=== PATIENT | female | born 1995 | race Caucasian/White ===

== ENCOUNTER 2018-04-24 12:10 | Emergency (ER) | payer OTHER ==
[2018-04-24 12:33] VITALS: TEMP 98; BMI 20.5
[2018-04-24] MEDS ORDERED: SODIUM CHLORIDE 1,000 ML IV STA (13:10)
--- NOTE | 2018-04-24 13:10 | PDOC ---
History of Present Illness - General Chief Complaint: Alcohol intoxication Stated Complaint: EVALUATION Time Seen by Provider: 04/24/18 12:30 History Source: Patient Exam Limitations: No Limitations - History of Present Illness Initial Comments: 04/24/18 15:54 22F with pmh of deprression, anxiety and etoh abuse presents to the ED BIBEM after acute alcohol intoxication overnight, having drank 2 pints of vodka. Patient's uncle was talking to her on the phone and could tell she wasn't alright so called ems to pick her up at her hotel. Patient's last drink was at 2am. She usually drinks alone, makes her anxiety feels better. Patient states that she took a cab from her home in [place] yesterday to [facility] rehab but felt unsafe with the patient population there. Past History - Past Medical History Allergies/Adverse Reactions: Allergies Allergy/AdvReac Type Severity Reaction Status Date / Time No Known Allergies Allergy Verified 04/24/18 12:30 Home Medications: Ambulatory Orders NK [No Known Home Medication] 04/24/18 COPD: No DVT: No - Immunization History Immunization Up to Date: Yes - Suicide/Smoking/Psychosocial Hx Smoking History: Never smoked Hx Alcohol Use: Yes (DAILY) Substance Use Type: Alcohol Review of Systems - Review of Systems Able to Perform ROS?: Yes Is the patient limited Egyptian proficient: No Constitutional: No: Symptoms Reported HEENTM: No: Symptoms Reported Respiratory: No: Symptoms reported Cardiac (ROS): No: Symptoms Reported ABD/GI: No: Symptoms Reported : No: Symptoms Reported Musculoskeletal: No: Symptoms Reported Integumentary: No: Symptoms Reported Neurological: Yes: Headache. No: Tremors Psychiatric: No: Anxiety Endocrine: No: Symptoms Reported All Other Systems: Reviewed and Negative *Physical Exam - Vital Signs Last Vital Signs Temp Pulse Resp BP Pulse Ox 98.0 F 71 16 120/73 99 04/24/18 12:30 04/24/18 12:30 04/24/18 12:30 04/24/18 12:30 04/24/18 12:30 - Physical Exam General Appearance: Yes: Nourished, Appropriately Dressed. No: Apparent Distress HEENT: positive: EOMI, EMERSON, Normal ENT Inspection, Other (mild tongue fasciculations) Respiratory/Chest: positive: Lungs Clear, Normal Breath Sounds. negative: Chest Tender, Respiratory Distress Cardiovascular: positive: Regular Rhythm, Regular Rate, S1, S2 Gastrointestinal/Abdominal: positive: Normal Bowel Sounds, Flat, Soft. negative : Tender Musculoskeletal: positive: Normal Inspection. negative: CVA Tenderness Extremity: positive: Normal Capillary Refill, Normal Inspection, Normal Range of Motion Integumentary: positive: Normal Color, Dry, Warm Neurologic: positive: Fully Oriented, Alert, Normal Mood/Affect ED Treatment Course - LABORATORY CBC & Chemistry Diagram: 04/24/18 13:30 04/24/18 13:30 Medical Decision Making - Medical Decision Making 04/24/18 16:08 Will give fluids, get labs. Obtain information from social sciences professor. 04/24/18 17:06 All labs WNL, alcohol only mildly elevated, no signs of withdrawal at this time. Will discharge with detox information. 04/24/18 17:20 Will order STD panel. Spoke to [facility], they have a bed for her. *DC/Admit/Observation/Transfer Diagnosis at time of Disposition: Acute alcohol intoxication, Alcohol abuse with physiological dependence - Discharge Dispostion Disposition: HOME Condition at time of disposition: Improved Decision to Admit order: No - Referrals - Patient Instructions Printed Discharge Instructions: DI for Alcohol Abuse Additional Instructions: Follow up with your detox appointment with [facility]. Come back to the ER for any new, worsening or concerning symptom such as jitters , shakes, fever, any behavioral changes. - Post Discharge Activity
[2018-04-24] MEDS ORDERED: THIAMINE HCL 100 MG TABLET (FP) PO ONE (13:11)
[2018-04-24 13:43] LABS: BASO % 0.3 % (0-2.0); HEMATOCRIT 39.8 % (32.4-45.2); HEMOGLOBIN 13.8 GM/dL (10.7-15.3); LYMPH % 19.8 % (8-40); MCH 30.7 pg (25.7-33.7); MCHC 34.6 g/dl (32.0-36.0); MEAN CELL VOLUME 88.9 fl (80-96); MONO % 5.1 % (3.8-10.2); NEUT % 74.8 % (42.8-82.8); PLATELET COUNT 177 K/MM3 (134-434); RBC 4.48 M/mm3 (3.60-5.2); RDW 13.3 % (11.6-15.6); WHITE BLOOD COUNT 6.8 K/mm3 (4.0-10.0)
[2018-04-24 14:19] LABS: ANION GAP 8 (8-16); BILIRUBIN,TOTAL 0.7 mg/dL (0.2-1.0); BLOOD UREA NITROGEN 11 mg/dL (7-18); CALCIUM 8.6 mg/dL (8.5-10.1); CHLORIDE 107 mmol/L (98-107); CO2 30 mmol/L (21-32); CREATININE 0.7 mg/dL (0.55-1.02); POTASSIUM 3.7 mmol/L (3.5-5.1); SGPT/ALT 28 U/L (12-78); SODIUM 145 mmol/L (136-145)
[2018-04-24 14:22] LABS: ALK PHOS 65 U/L (45-117); SGOT/AST 35 U/L (15-37); TOT PROT 6.9 g/dl (6.4-8.2)
[2018-04-24 14:37] LABS: GLUCOSE,RANDOM 89 mg/dL (74-106)
--- NOTE | 2018-04-24 14:49 | PDOC ---
Attending Attestation - HPI HPI: 04/24/18 14:51 The patient is a 22-year-old female present to the emergency department with alcohol intoxication. The patient reports she started drinking earlier today, states once she starts drinking shes cant stop. The patient reports following rehab, patient had a long period of sobriety, till about a month ago. The patient states she relapsed a month ago since then shes been drinking daily. Denies any prior surgery. Denies any recent drug use. Denies falling or injuring self. Denies self-harming thoughts or feelings. Denies nausea or vomiting. Denies a headache. Allergies: NKA Social history: Daily alcohol use. No smoking history recorded. PCP: None reported - Physicial Exam PE: 04/24/18 14:52 GENERAL: The patient is in no acute distress. HEAD: Normal with no signs of trauma. LUNGS: Breath sounds equal, clear to auscultation bilaterally. No wheezes, and no crackles. HEART:Regular rate and rhythm, normal S1 and S2 without murmur, rub or gallop. ABDOMEN: Soft, nontender, normoactive bowel sounds. No guarding, no rebound. No masses palpable. EXTREMITIES: Normal range of motion, no edema. No clubbing or cyanosis. No erythema, or tenderness. MUSCULOSKELETAL: Back non-tender to palpation, no CVA tenderness SKIN: Warm, Dry, normal turgor, no rashes or lesions noted. - Medical Decision Making 04/24/18 14:52 Documentation prepared by Randi Dale, acting as medical records coordinator for Lizzy Chapa MD. <Randi Dale - Last Filed: 04/24/18 14:51> - Resident Resident Name: Ankur Hurtado - ED Attending Attestation I have performed the following: I have examined & evaluated the patient, The case was reviewed & discussed with the resident, I agree w/resident's findings & plan, Exceptions are as noted - Medical Decision Making 04/24/18 14:47 22 yo F presenting to the ER via EMS due to alcohol intoxication pt states she has had periods of sobriety but relapsed 1 month ago Drinks daily No h/o withdrawal Will do basic labs Will plan to transfer to detox (pt was apparently sent to [facility] but did not want to stay there) [facility] contacted They have a bed, will transfer to [facility] clinical impression: alcohol intoxication, initial presentation <Lizzy Chapa - Last Filed: 04/26/18 09:44>
[2018-04-24 18:05] VITALS: BP 127/93; PULSE 69
[2018-04-24 18:28] LABS: COCAINE, UR NEGATIVE ng/ml (CUTOFF=300); METHADONE, UR NEGATIVE ng/ml (CUTOFF=300); OPIATES, URI NEGATIVE ng/ml (CUTOFF=300); PHENCYCLIDINE,URINE NEGATIVE ng/ml (CUTOFF=25); URINE AMPHETAMINES NEGATIVE ng/ml (CUTOFF=500); URINE BARBITURATES NEGATIVE ng/ml (CUTOFF=200); URINE BENZODIAZEPINES NEGATIVE ng/ml (CUTOFF=200)
== END 2018-04-24 18:05 | disposition home or self-care (01) ==
LOC: JER 12:10
PROC: 3E0337Z Introduction of Electrolytic and Water Balance Substance into Peripheral Vein, Percutaneous Approach (ICD-10-PCS; principal; 2018-04-24)
DX: F10.120 Alcohol abuse with intoxication, uncomplicated (principal); Y90.3 Blood alcohol level of 60-79 mg/100 ml; F41.9 Anxiety disorder, unspecified
CPT/HCPCS: 36415; 80053; 80307; 85025; 86593; 87389; 87491; 87591; 99284-25; J7030

== ENCOUNTER 2018-04-24 19:06 | Inpatient (IN) | payer OTHER ==
[2018-04-24 19:38] VITALS: BMI 20.5
--- NOTE | 2018-04-24 20:47 | HP ---
CIWA Score - CIWA Score Nausea/Vomitin-Mild Nausea/No Vomiting Muscle Tremors: 4-Moderate,w/Arms Extend Anxiety: 4-Mod. Anxious/Guarded Agitation: 4-Moderately Restless Paroxysmal Sweats: No Perspiration Orientation: 0-Oriented Tacttile Disturbances: 0-None Auditory Disturbances: 0-None Visual Disturbances: 0-None Headache: 3-Moderate CIWA-Ar Total Score: 16 Admission ROS S - HPI Chief Complaint: Alcohol withdrawal symptoms Allergies/Adverse Reactions: Allergies Allergy/AdvReac Type Severity Reaction Status Date / Time No Known Allergies Allergy Verified 04/24/18 12:30 History of Present Illness: 22 years old female with 10 years of alcohol dependence is seeking admission to detox. Patient has been in previous detox and reports 19 months of sobriety. She has medical history of anxiety and depression. This is her [facility] admission to [facility]. She reports suicide attempt in 2016 and denies suicidal ideation at this time. Exam Limitations: No Limitations - Ebola screening Have you traveled outside of the country in the last 21 days: No Have you had contact with anyone from an Ebola affected area: No Have you been sick,other than usual withdrawal symptoms: No Do you have a fever: No - Review of Systems Constitutional: Chills, Loss of Appetite, Malaise, Night Sweats, Changes in sleep EENT: reports: No Symptoms Reported Respiratory: reports: No Symptoms reported Cardiac: reports: No Symptoms Reported GI: reports: Nausea, Poor Appetite, Poor Fluid Intake, Abdominal cramping : reports: No Symptoms Reported Musculoskeletal: reports: Back Pain, Joint Pain, Muscle Pain, Muscle Weakness, Other (left arm) Integumentary: reports: Dryness Neuro: reports: Tremors Endocrine: reports: No Symptoms Reported Hematology: reports: No Symptoms Reported Psychiatric: reports: Anxious, Depressed Other Systems: Reviewed and Negative Patient History - Patient Medical History Hx Anemia: No Hx Asthma: No Hx Chronic Obstructive Pulmonary Disease (COPD): No Hx Cancer: No Hx Cardiac Disorders: No Hx Congestive Heart Failure: No Hx Hypertension: No Hx Hypercholesterolemia: No HX Cerebrovascular Accident: No Hx Seizures: No Hx Diabetes: No Hx Gastrointestinal Disorders: No Hx Genitourinary Disorders: No Hx Sexually Transmitted Disorders: No Hx Renal Disease (ESRD): No Hx Human Immunodeficiency Virus (HIV): No (Negative 2015) Hx Hepatitis C: No Hx Depression: Yes (Not on medication) Hx Suicide Attempt: Yes (Attempt in 2016, denies suicidal ideation at this time) Hx Bipolar Disorder: No Hx Schizophrenia: No - Patient Surgical History Past Surgical History: No - PPD History Previous Implant?: Yes Documented Results: Negative w/o proof Implanted On Prior R Admission?: No Results: NEGATIVE PPD to be Administered?: Yes - Reproductive History Patient is a Female of Child Bearing Age (11 -55 yrs old): Yes Last Menstrual Period: 03/23/18 Patient : No - Smoking Cessation Smoking history: Current every day smoker Have you smoked in the past 12 months: Yes Aproximately how many cigarettes per day: 10 Hx Chewing Tobacco Use: No Initiated information on smoking cessation: Yes 'Breaking Loose' booklet given: 04/24/18 - Substance & Tx. History Hx Alcohol Use: No Hx Substance Use: Yes Substance Use Type: Alcohol Hx Substance Use Treatment: Yes ([facility] [place], [place], [place]) - Substances Abused Alcohol Route: Oral Frequency: Daily Amount used: 1/5 VODKA Age of first use: 11 Date of Last Use: 04/24/18 Family Disease History - Family Disease History Family Disease History: Other: Father (Alcohol, Drug Overdose) Admission Physical Exam [facility] - Vital Signs Vital Signs: Vital Signs - 24 hr 04/24/18 19:19 Temperature 97.9 F Pulse Rate 58 L Respiratory 18 Rate Blood Pressure 112/61 - Physical General Appearance: Yes: Moderate Distress, Tremorous, Irritable, Sweating, Anxious HEENTM: Yes: EOMI, Normal ENT Inspection, Normocephalic, Normal Voice, EMERSON Respiratory: Yes: Lungs Clear, Normal Breath Sounds, No Respiratory Distress Neck: Yes: Supple Breast: Yes: Breast Exam Deferred Cardiology: Yes: Regular Rhythm, Regular Rate, S1, S2 Abdominal: Yes: Normal Bowel Sounds, Soft Genitourinary: Yes: Within Normal Limits Back: Yes: Normal Inspection Musculoskeletal: Yes: Back pain, Muscle Pain Extremities: Yes: Tremors Neurological: Yes: multifocal lens assembler II-XII NML intact, Alert, Normal Mood/Affect Integumentary: Yes: Warm Lymphatic: Yes: Within Normal Limits - Diagnostic (1) Alcohol dependence with uncomplicated withdrawal Current Visit: Yes Status: Acute (2) Depression Current Visit: Yes Status: Acute Qualifiers: Depression Type: unspecified Qualified Code(s): F32.9 - Major depressive disorder, single episode, unspecified (3) Anxiety Current Visit: Yes Status: Acute (4) Nicotine dependence Current Visit: Yes Status: Chronic Cleared for Admission [facility] - Detox or Rehab [facility] Level of Care: Medically Managed Detox Regimen/Protocol: Librium [facility] Breath Alcohol Content Breath Alcohol Content: 0 Urine Pregancy Test - Result Urine Test Results: Negative- NO Line Present Urine Drug Screen - Results Drug Screen Negative: Yes
[2018-04-24] MEDS ORDERED: MAGNESIUM HYDROX 2400MG/30ML ORAL SUSPENSION 30 ML CUP PO PRN (20:58)
[2018-04-24] MEDS ORDERED: MENTHOL/PHENOL 1 EACH UD MM PRN (20:58)
[2018-04-24] MEDS ORDERED: MAGNESIUM CITRATE 300 ML BOTTLE PO PRN (20:58)
[2018-04-24] MEDS ORDERED: IBUPROFEN 400 MG TABLET (FP) PO PRN (20:58)
[2018-04-24] MEDS ORDERED: guaiFENesin/D-METHORPHAN HB 10 ML UNIT-DOSE CUPS PO PRN (20:58)
[2018-04-24] MEDS ORDERED: LOPERAMIDE HCL 2 MG CAPSULE PO PRN (20:58)
[2018-04-24] MEDS ORDERED: NICOTINE POLACRILEX 2 MG GUM BC PRN (20:58)
[2018-04-24] MEDS ORDERED: ACETAMINOPHEN 325 MG TABLET (FP) PO PRN (20:58)
[2018-04-24] MEDS ORDERED: P-EPHED 60MG/TRIPROLIDI 2.5MG TABLET PO PRN (20:58)
[2018-04-24] MEDS: chlordiazePOXIDE HCL 25 MG CAPSULE PO SCH (22:42)
[2018-04-24] MEDS: THIAMINE HCL 100 MG TABLET (FP) PO SCH (22:43)
[2018-04-25] MEDS: chlordiazePOXIDE HCL 25 MG CAPSULE PO SCH ×4 (05:32→22:49)
[2018-04-25 10:15] LABS: HEMOGLOBIN 12.1 GM/dL (10.7-15.3); MCHC 34.6 g/dl (32.0-36.0); MEAN CELL VOLUME 89.8 fl (80-96); MEAN PLT VOLUME 8.7 fl (7.5-11.1); PLATELET COUNT 161 K/MM3 (134-434); RDW 13.2 % (11.6-15.6); WHITE BLOOD COUNT 5.7 K/mm3 (4.0-10.0)
[2018-04-25] MEDS: chlordiazePOXIDE HCL 25 MG CAPSULE PO PRN ×2 (10:19→14:37)
[2018-04-25] MEDS: NICOTINE 14 MG/24 HOURS TOPICAL PATCH TD SCH (10:19)
[2018-04-25] MEDS: PRENATAL VITAMINS W/ FOLIC ACID TABLET (FP) PO SCH (10:19)
[2018-04-25 10:24] LABS: URINE APPEARANCE SLCLOUDY; URINE BILIRUBIN NEGATIVE (<2.0 mg/dL); URINE COLOR YELLOW; URINE GLUCOSE (UA) NEGATIVE (NEGATIVE); URINE KETONE NEGATIVE (NEGATIVE); URINE LEUK ESTERASE NEGATIVE (NEGATIVE); URINE NITRITE NEGATIVE (NEGATIVE); URINE UROBILINOGEN NEGATIVE mg/dL (0.2-1.0)
[2018-04-25 10:25] LABS: ALBUMIN 3.4 g/dl (3.4-5.0); ANION GAP 8 (8-16); BLOOD UREA NITROGEN 10 mg/dL (7-18); CALCIUM 8.4 mg/dL (8.5-10.1); CHLORIDE 109 mmol/L (98-107); CO2 28 mmol/L (21-32); GLUCOSE,RANDOM 80 mg/dL (74-106); POTASSIUM 3.5 mmol/L (3.5-5.1); SODIUM 145 mmol/L (136-145)
[2018-04-25 10:28] LABS: ALK PHOS 54 U/L (45-117); BILIRUBIN,TOTAL 1.5 mg/dL (0.2-1.0); CREATININE 0.7 mg/dL (0.55-1.02); SGOT/AST 25 U/L (15-37); SGPT/ALT 22 U/L (12-78); TOT PROT 5.9 g/dl (6.4-8.2)
[2018-04-25 10:33] LABS: URINE PROTEIN 1+ (NEGATIVE)
[2018-04-25 10:54] LABS: EPI CELLS RARE /HPF (FEW); URINE BACTERIA RARE /hpf (NONE SEEN); URINE MUCUS FEW
--- NOTE | 2018-04-25 11:41 | CONSULT ---
[facility] Psychiatric Consult - Data Date of interview: 04/25/18 Admission source: Self referred Identifying data: 22 y/o female single unemployed, no kids with a history of alcohol abuse Substance Abuse History: Drinks alcohol daily with a history of black out spells , she reports that she has been admitted twice this week due to alcohol intoxication and loss of consciousness . she denies seizure disorder. Her history of alcohol depemdence span over a decade.This is her 3rd Detox admission , she has been at [facility] and [facility]. This is her first admission to [facility]. She drinks Vodka daily Medical History: No active medical problem Psychiatric History: No prior psychiatric hospitalizaton, she was observed in a psych ED CPEP unit overnight following a suicide gesture in 2016 after she superficially cut her wrists and OD pills. She was diagnosed with depression and anxiety and has been seing a psychotherapist . She is not medicated or sees a psychiatrist on a consistent basis. She harbors suicide ideation, denies intent or plan to harm self in the unit. She feels depressed amd her anxiety has been frequent and intense. Physical/Sexual Abuse/Trauma History: denied Mental Status Exam - Mental Status Exam Alert and Oriented to: Person Cognitive Function: Fair Patient Appearance: Unkempt Mood: Depressed, Anxious Affect: Appropriate Patient Behavior: Fatigued, Cooperative Speech Pattern: Appropriate Voice Loudness: Normal Thought Process: Intact Thought Disorder: Not Present Hallucinations: None Suicidal Ideation: None Homicidal Ideation: None Insight/Judgement: Poor Sleep: Poorly Appetite: Fair Muscle strength/Tone: Normal Gait/Station: Normal Psychiatric Findings - Problem List ([place] 1, 2,3) (1) Alcohol dependence with uncomplicated withdrawal Current Visit: Yes Status: Acute (2) Anxiety Current Visit: Yes Status: Acute (3) Depression Current Visit: Yes Status: Acute Qualifiers: Depression Type: unspecified Qualified Code(s): F32.9 - Major depressive disorder, single episode, unspecified (4) Acute alcohol intoxication Current Visit: No Status: Acute (5) Alcohol abuse with physiological dependence Current Visit: No Status: Acute - Initial Treatment Plan Initial Treatment Plan: Continue Detox treatment. Monitor response. Observe closely. Psychiatric re=evaluation. Hydoxyzine 25 mg po bid
--- NOTE | 2018-04-25 14:05 | PN ---
S CIWA - CIWA Score Nausea/Vomitin-Mild Nausea/No Vomiting Muscle Tremors: 4-Moderate,w/Arms Extend Anxiety: 1-Mildly Anxious Agitation: 1-Slight > Activity Paroxysmal Sweats: 1-Minimal Palms Moist Orientation: 0-Oriented Tacttile Disturbances: 0-None Auditory Disturbances: 0-None Visual Disturbances: 0-None Headache: 0-None Present CIWA-Ar Total Score: 8
--- NOTE | 2018-04-25 14:10 | PN ---
S Progress Note (SOAP) Subjective: C/o mild nausea but tolerating diet. C/o depression but denies current thoughts of harming self or others. Objective: 04/25/18 14:06 Alert and oriented x 3. Lungs CTA. Abd soft and non-tender. Increased bowel sounds. (+) tremors of extended hands. Gait steady. Vital Signs 04/25/18 04/25/18 07:19 10:00 Temperature 97.7 F 97.7 F Pulse Rate 65 60 Respiratory 16 16 Rate Blood Pressure 113/57 99/74 Assessment: 04/25/18 14:08 Alcohol withdrawal. Scored 8 on CIWA. Depression. 04/25/18 14:10 Plan: Continue detox protocol.
[2018-04-25] MEDS: hydrOXYzine HCL 25 MG TABLET (FP) PO PRN ×2 (14:29→23:05)
--- NOTE | 2018-04-25 19:23 | EKG ---
Test Reason : Blood Pressure : / mmHG Vent. Rate : 056 BPM Atrial Rate : 056 BPM P-R Int : 124 ms QRS Dur : 080 ms QT Int : 400 ms P-R-T Axes : 068 075 031 degrees QTc Int : 386 ms SINUS BRADYCARDIA OTHERWISE NORMAL ECG NO PREVIOUS ECGS AVAILABLE Confirmed by MD BRIDGER, FREDA ([id number]) on 04/25/2018 7:22:25 PM Referred By: Confirmed By:FREDA SPARKS MD
[2018-04-25] MEDS: THIAMINE HCL 100 MG TABLET (FP) PO SCH (22:22)
[2018-04-26] MEDS: chlordiazePOXIDE HCL 25 MG CAPSULE PO SCH ×3 (07:42→16:49)
[2018-04-26] MEDS: PRENATAL VITAMINS W/ FOLIC ACID TABLET (FP) PO SCH (10:49)
[2018-04-26] MEDS: NICOTINE 14 MG/24 HOURS TOPICAL PATCH TD SCH (10:50)
--- NOTE | 2018-04-26 10:50 | PN ---
S CIWA - CIWA Score Nausea/Vomitin Muscle Tremors: 3 Anxiety: 2 Agitation: 2 Paroxysmal Sweats: 1-Minimal Palms Moist Orientation: 0-Oriented Tacttile Disturbances: 1-Very Mild Itch/Numbness Auditory Disturbances: 1-Very Mild Visual Disturbances: 0-None Headache: 2-Mild CIWA-Ar Total Score: 15 BHS Progress Note (SOAP) Subjective: alert,irritable,anxious,interrupted sleep,tremor Objective: 04/26/18 10:48 Vital Signs Temperature 97.7 F 04/26/18 09:57 Pulse Rate 67 04/26/18 09:57 Respiratory Rate 18 04/26/18 09:57 Blood Pressure 116/63 04/26/18 09:57 O2 Sat by Pulse Oximetry (%) Laboratory Last Values WBC 5.7 K/mm3 (4.0-10.0) 04/25/18 07:20 RBC 3.90 M/mm3 (3.60-5.2) 04/25/18 07:20 Hgb 12.1 GM/dL (10.7-15.3) 04/25/18 07:20 Hct 35.0 % (32.4-45.2) 04/25/18 07:20 MCV 89.8 fl (80-96) 04/25/18 07:20 MCH 31.0 pg (25.7-33.7) 04/25/18 07:20 MCHC 34.6 g/dl (32.0-36.0) 04/25/18 07:20 RDW 13.2 % (11.6-15.6) 04/25/18 07:20 Plt Count 161 K/MM3 (134-434) 04/25/18 07:20 MPV 8.7 fl (7.5-11.1) 04/25/18 07:20 Sodium 145 mmol/L (136-145) 04/25/18 07:20 Potassium 3.5 mmol/L (3.5-5.1) 04/25/18 07:20 Chloride 109 mmol/L (98-107) H 04/25/18 07:20 Carbon Dioxide 28 mmol/L (21-32) 04/25/18 07:20 Anion Gap 8 (8-16) 04/25/18 07:20 BUN 10 mg/dL (7-18) 04/25/18 07:20 Creatinine 0.7 mg/dL (0.55-1.02) 04/25/18 07:20 Creat Clearance w eGFR > 60 (>60) 04/25/18 07:20 Random Glucose 80 mg/dL (74-106) 04/25/18 07:20 Calcium 8.4 mg/dL (8.5-10.1) L 04/25/18 07:20 Total Bilirubin 1.5 mg/dL (0.2-1.0) H 04/25/18 07:20 AST 25 U/L (15-37) 04/25/18 07:20 ALT 22 U/L (12-78) 04/25/18 07:20 Alkaline Phosphatase 54 U/L (45-117) D 04/25/18 07:20 Total Protein 5.9 g/dl (6.4-8.2) L 04/25/18 07:20 Albumin 3.4 g/dl (3.4-5.0) 04/25/18 07:20 Urine Color Yellow 04/25/18 07:40 Urine Appearance Slcloudy 04/25/18 07:40 Urine pH 9.0 (5.0-8.0) H 04/25/18 07:40 Ur Specific [place] 1.024 (1.001-1.035) 04/25/18 07:40 Urine Protein 1+ (NEGATIVE) H 04/25/18 07:40 Urine Glucose (UA) Negative (NEGATIVE) 04/25/18 07:40 Urine Ketones Negative (NEGATIVE) 04/25/18 07:40 Urine Blood Negative (NEGATIVE) 04/25/18 07:40 Urine Nitrite Negative (NEGATIVE) 04/25/18 07:40 Urine Bilirubin Negative (<2.0 mg/dL) 04/25/18 07:40 Urine Urobilinogen Negative mg/dL (0.2-1.0) 04/25/18 07:40 Ur Leukocyte Esterase Negative (NEGATIVE) 04/25/18 07:40 Urine WBC (Auto) 2 /hpf (3-5) 04/25/18 07:40 Urine RBC (Auto) None /hpf (0-3) 04/25/18 07:40 Ur Epithelial Cells Rare /HPF (FEW) 04/25/18 07:40 Urine Bacteria Rare /hpf (NONE SEEN) 04/25/18 07:40 Urine Mucus Few 04/25/18 07:40 RPR Titer Cancelled 04/25/18 07:20 HIV 1&2 Antibody Screen Negative 04/25/18 07:20 HIV P24 Antigen Negative 04/25/18 07:20 Assessment: 04/26/18 10:49 withdrawal symptom Plan: continue detox
[2018-04-26] MEDS: hydrOXYzine HCL 25 MG TABLET (FP) PO PRN ×2 (12:55→22:08)
[2018-04-26] MEDS: THIAMINE HCL 100 MG TABLET (FP) PO SCH (22:08)
[2018-04-26] MEDS: chlordiazePOXIDE 5 MG CAPSULE PO SCH (22:09)
[2018-04-27] MEDS: chlordiazePOXIDE HCL 25 MG CAPSULE PO PRN (00:31)
[2018-04-27] MEDS: chlordiazePOXIDE 5 MG CAPSULE PO SCH ×3 (07:01→17:43)
[2018-04-27] MEDS: PRENATAL VITAMINS W/ FOLIC ACID TABLET (FP) PO SCH (11:00)
[2018-04-27] MEDS: NICOTINE 14 MG/24 HOURS TOPICAL PATCH TD SCH (11:01)
[2018-04-27] MEDS: hydrOXYzine HCL 25 MG TABLET (FP) PO PRN (11:58)
--- NOTE | 2018-04-27 13:31 | PN ---
BHS Progress Note (SOAP) Subjective: alert,irritable,anxious,interrupted sleep Objective: 04/27/18 13:31 Vital Signs Temperature 97.7 F 04/27/18 09:40 Pulse Rate 77 04/27/18 09:40 Respiratory Rate 16 04/27/18 09:40 Blood Pressure 107/67 04/27/18 09:40 O2 Sat by Pulse Oximetry (%) Assessment: 04/27/18 13:31 withdrawal symptom Plan: continue detox
[2018-04-27] MEDS: hydrOXYzine PAMOATE 25 MG CAPSULE (FP) PO PRN ×2 (14:37→20:48)
[2018-04-27] MEDS: MAG HYDROX/AL HYDROX/SIMETH 30 ML UNIT-DOSE CUP PO PRN (14:38)
--- NOTE | 2018-04-27 15:58 | PN ---
Psychiatric Progress Note Vital Signs: Vital Signs Period Temp Pulse Resp BP Sys/Hurtado Pulse Ox Last 24 Hr 97.0 F-97.8 F 72-91 16-19 93-128/54-81 Date of Session: 04/27/18 Chief Complaint:: "I continue to have anxiety." HPI: Patient admitted to for alcohol dependence. ROS: Unremarkable Current Medications: Active Medications Generic Name Dose Route Start Last Admin Trade Name Freq PRN Reason Stop Dose Admin Acetaminophen 650 mg 04/24/18 20:58 Tylenol - PO Q4H PRN FEVER Al Hydroxide/Mg Hydroxide 30 ml 04/24/18 20:58 04/27/18 14:38 Mylanta Oral Suspension - PO 30 ml Q6H PRN Administration DYSPEPSIA Chlordiazepoxide HCl 15 mg 04/26/18 23:00 04/27/18 11:00 Librium - PO 04/27/18 17:01 15 mg [id number] LACY Administration Chlordiazepoxide HCl 25 mg 04/24/18 20:58 04/27/18 00:31 Librium - PO 04/27/18 20:57 25 mg Q4H PRN Administration WITHDRAWAL(CONT SUBST) Chlordiazepoxide HCl 10 mg 04/27/18 23:00 Librium - PO 04/28/18 17:01 [id number] LACY Eucalyptus/Menthol/Phenol/Sorbitol 1 each 04/24/18 20:58 Cepastat Lozenge - MM Q4H PRN SORE THROAT Guaifenesin 10 ml 04/24/18 20:58 Robitussin Dm - PO Q6H PRN COUGH Hydroxyzine Pamoate 25 mg 04/27/18 13:44 04/27/18 14:37 Vistaril - PO 25 mg Q4H PRN Administration ANXIETY Ibuprofen 400 mg 04/24/18 20:58 Motrin - PO Q6H PRN PAIN LEVEL 4-6 Loperamide HCl 4 mg 04/24/18 20:58 04/27/18 14:41 Imodium - PO 4 mg Q6H PRN Administration DIARRHEA Magnesium Citrate 300 ml 04/24/18 20:58 Citroma - PO Q48H PRN CONSTIPATION Magnesium Hydroxide 30 ml 04/24/18 20:58 Milk Of Magnesia - PO DAILY PRN CONSTIPATION Melatonin 5 mg 04/24/18 22:00 Melatonin PO HS PRN INSOMNIA Nicotine 14 mg 04/25/18 10:00 04/27/18 11:01 Nicoderm Patch - TD 14 mg DAILY LACY Administration Nicotine Polacrilex 2 mg 04/24/18 20:58 Nicorette Gum - BC Q2H PRN NICOTINE REPLACEMENT RX Multivit/Folic Acid/Iron 1 tab 04/25/18 10:00 04/27/18 11:00 Vitamins (Sjr) - PO 1 tab DAILY LACY Administration Pseudoephedrine/Triprolidine 1 combo 04/24/18 20:58 Actifed - PO TID PRN NASAL CONGESTION Thiamine HCl 100 mg 04/24/18 22:00 04/26/18 22:08 Vitamin B1 - PO 100 mg HS LACY Administration Medication(s) Change(s): Yes. Will order vistaril 25mg q4h Current Side Effect: No Lab tests ordered: No Lab tests reviewed: Yes Provider note:: Community Outreach Coordinator met with patient concerning psychiatric follow up. Pt. reports h/o anxiety, OCD, and depression. States she is prescribed klonopin for anxiety. Has also been on trials of celexa and effexor for depression but states medications were ineffective. States she has been self medicating with alcohol to help cope with her anxiety. Pt. is currently prescribed vistaril 25m BID. Will instead order vistaril 25mg q4h. Pt. encouraged to utilize coping mechanisms to assist in mananging her anxiety. Pt. satisifed and receptive to feeback. Total face to face time:: 25 Mental Status Exam - Mental Status Exam Alert and Oriented to: Time, Place, Person Cognitive Function: Good Patient Appearance: Well Groomed Mood: Euthymic Affect: Appropriate Patient Behavior: Appropriate, Cooperative Speech Pattern: Clear, Appropriate Voice Loudness: Normal Thought Process: Intact, Goal Oriented Thought Disorder: Not Present Hallucinations: Denies Suicidal Ideation: Denies Homicidal Ideation: Denies Insight/Judgement: Poor Sleep: Fair Appetite: Fair Muscle strength/Tone: Normal Gait/Station: Normal Psychiatric Treatment Plan - Problem List (1) Alcohol dependence with uncomplicated withdrawal Current Visit: Yes (2) Anxiety Current Visit: Yes (3) Nicotine dependence Current Visit: Yes
[2018-04-27] MEDS: chlordiazePOXIDE HCL 10 MG CAPSULE PO SCH (22:09)
[2018-04-27] MEDS: THIAMINE HCL 100 MG TABLET (FP) PO SCH (22:09)
[2018-04-27] MEDS: MELATONIN 5 MG TABLETS PO PRN (22:54)
[2018-04-28] MEDS: hydrOXYzine PAMOATE 25 MG CAPSULE (FP) PO PRN ×4 (00:53→19:16)
[2018-04-28] MEDS: chlordiazePOXIDE HCL 10 MG CAPSULE PO SCH ×3 (06:00→17:32)
[2018-04-28] MEDS: MAG HYDROX/AL HYDROX/SIMETH 30 ML UNIT-DOSE CUP PO PRN (08:35)
--- NOTE | 2018-04-28 09:29 | PN ---
S Progress Note (SOAP) Subjective: alert,irritable,anxious,interrupted sleep, Objective: 04/28/18 09:29 Vital Signs Temperature 97 F L 04/28/18 07:17 Pulse Rate 65 04/28/18 07:17 Respiratory Rate 16 04/28/18 07:17 Blood Pressure 106/75 04/28/18 07:17 O2 Sat by Pulse Oximetry (%) Assessment: 04/28/18 09:30 withdrawal symptom Plan: continue detox,discharge in am
[2018-04-28] MEDS: NICOTINE 14 MG/24 HOURS TOPICAL PATCH TD SCH (10:20)
[2018-04-28] MEDS: PRENATAL VITAMINS W/ FOLIC ACID TABLET (FP) PO SCH (10:20)
--- NOTE | 2018-04-28 10:51 | PN ---
Psychiatric Progress Note Vital Signs: Vital Signs Period Temp Pulse Resp BP Sys/Hurtado Pulse Ox Last 24 Hr 97 F-98.1 F 65-84 -18 99-106/59-75 Date of Session: 04/28/18 Chief Complaint:: Insomnia HPI: Patient reports insomnia, reports taking prior to admission trazodonbe 100mg po qhs with good response Current Medications: Active Medications Generic Name Dose Route Start Last Admin Trade Name Freq PRN Reason Stop Dose Admin Acetaminophen 650 mg 04/24/18 20:58 Tylenol - PO Q4H PRN FEVER Al Hydroxide/Mg Hydroxide 30 ml 04/24/18 20:58 04/28/18 08:35 Mylanta Oral Suspension - PO 30 ml Q6H PRN Administration DYSPEPSIA Chlordiazepoxide HCl 10 mg 04/27/18 23:00 04/28/18 10:20 Librium - PO 04/28/18 17:01 10 mg [id number] LACY Administration Eucalyptus/Menthol/Phenol/Sorbitol 1 each 04/24/18 20:58 Cepastat Lozenge - MM Q4H PRN SORE THROAT Guaifenesin 10 ml 04/24/18 20:58 Robitussin Dm - PO Q6H PRN COUGH Hydroxyzine Pamoate 25 mg 04/27/18 13:44 04/28/18 08:35 Vistaril - PO 25 mg Q4H PRN Administration ANXIETY Ibuprofen 400 mg 04/24/18 20:58 Motrin - PO Q6H PRN PAIN LEVEL 4-6 Loperamide HCl 4 mg 04/24/18 20:58 04/27/18 14:41 Imodium - PO 4 mg Q6H PRN Administration DIARRHEA Magnesium Citrate 300 ml 04/24/18 20:58 Citroma - PO Q48H PRN CONSTIPATION Magnesium Hydroxide 30 ml 04/24/18 20:58 Milk Of Magnesia - PO DAILY PRN CONSTIPATION Melatonin 5 mg 04/24/18 22:00 04/27/18 22:54 Melatonin PO 5 mg HS PRN Administration INSOMNIA Nicotine 14 mg 04/25/18 10:00 04/28/18 10:20 Nicoderm Patch - TD 14 mg DAILY LACY Administration Nicotine Polacrilex 2 mg 04/24/18 20:58 Nicorette Gum - BC Q2H PRN NICOTINE REPLACEMENT RX Multivit/Folic Acid/Iron 1 tab 04/25/18 10:00 04/28/18 10:20 Vitamins (Sjr) - PO 1 tab DAILY LACY Administration Pseudoephedrine/Triprolidine 1 combo 04/24/18 20:58 Actifed - PO TID PRN NASAL CONGESTION Thiamine HCl 100 mg 04/24/18 22:00 04/27/18 22:09 Vitamin B1 - PO 100 mg HS LACY Administration Medication(s) Change(s): Trazodone 100mg po qhs Mental Status Exam - Mental Status Exam Alert and Oriented to: Person Cognitive Function: Fair Patient Appearance: Well Groomed Mood: Euthymic Affect: Mood Congruent Patient Behavior: Cooperative Speech Pattern: Appropriate Voice Loudness: Mildly Soft/Quiet Thought Process: Goal Oriented Thought Disorder: Being Controlled Hallucinations: Denies Suicidal Ideation: Denies Homicidal Ideation: Denies Insight/Judgement: Fair Sleep: Difficulty falling asleep Appetite: Fair Muscle strength/Tone: Normal Gait/Station: Normal Additional Comments: Trazodone 100mg po qhs Psychiatric Treatment Plan - Problem List (1) Alcohol dependence with uncomplicated withdrawal Current Visit: Yes (2) Anxiety Current Visit: Yes (3) Depression Current Visit: Yes Qualifiers: Depression Type: unspecified Qualified Code(s): F32.9 - Major depressive disorder, single episode, unspecified (4) Nicotine dependence Current Visit: Yes (5) Acute alcohol intoxication Current Visit: No (6) Alcohol abuse with physiological dependence Current Visit: No Initial treatment plan: Trazodone 100mg po qhs
[2018-04-28] MEDS ORDERED: traZODone HCL 100 MG TABLET (FP) PO SCH (22:00)
[2018-04-28] MEDS: THIAMINE HCL 100 MG TABLET (FP) PO SCH (22:30)
[2018-04-29] MEDS: hydrOXYzine PAMOATE 25 MG CAPSULE (FP) PO PRN ×2 (00:46→10:52)
[2018-04-29] MEDS: MELATONIN 5 MG TABLETS PO PRN (00:46)
--- NOTE | 2018-04-29 08:11 | PN ---
S Progress Note (SOAP) Subjective: alert,no complaint Objective: 04/29/18 08:10 Vital Signs Temperature 97.7 F 04/29/18 06:35 Pulse Rate 77 04/29/18 07:35 Respiratory Rate 18 04/29/18 07:35 Blood Pressure 86/57 04/29/18 07:35 O2 Sat by Pulse Oximetry (%) Assessment: 04/29/18 08:10 detox completed,no withdrawal symptom Plan: discharge today,follow up with after care program as arrangement
--- NOTE | 2018-04-29 08:14 | DS ---
[facility] Detox Discharge Summary Admission Date: 04/24/18 Discharge Date: 04/29/18 - History Present History: Alcohol Dependence Additional Comments: follow up with [facility] as arrangement Pertinent Past History: nicotine dependence anxiety and depression - Physical Exam Results Vital Signs: Vital Signs Temperature 97.7 F 04/29/18 06:35 Pulse Rate 77 04/29/18 07:35 Respiratory Rate 18 04/29/18 07:35 Blood Pressure 86/57 04/29/18 07:35 O2 Sat by Pulse Oximetry (%) Pertinent Admission Physical Exam Findings: withdrawal signs and symptom Laboratory Last Values WBC 5.7 K/mm3 (4.0-10.0) 04/25/18 07:20 RBC 3.90 M/mm3 (3.60-5.2) 04/25/18 07:20 Hgb 12.1 GM/dL (10.7-15.3) 04/25/18 07:20 Hct 35.0 % (32.4-45.2) 04/25/18 07:20 MCV 89.8 fl (80-96) 04/25/18 07:20 MCH 31.0 pg (25.7-33.7) 04/25/18 07:20 MCHC 34.6 g/dl (32.0-36.0) 04/25/18 07:20 RDW 13.2 % (11.6-15.6) 04/25/18 07:20 Plt Count 161 K/MM3 (134-434) 04/25/18 07:20 MPV 8.7 fl (7.5-11.1) 04/25/18 07:20 Sodium 145 mmol/L (136-145) 04/25/18 07:20 Potassium 3.5 mmol/L (3.5-5.1) 04/25/18 07:20 Chloride 109 mmol/L (98-107) H 04/25/18 07:20 Carbon Dioxide 28 mmol/L (21-32) 04/25/18 07:20 Anion Gap 8 (8-16) 04/25/18 07:20 BUN 10 mg/dL (7-18) 04/25/18 07:20 Creatinine 0.7 mg/dL (0.55-1.02) 04/25/18 07:20 Creat Clearance w eGFR > 60 (>60) 04/25/18 07:20 Random Glucose 80 mg/dL (74-106) 04/25/18 07:20 Calcium 8.4 mg/dL (8.5-10.1) L 04/25/18 07:20 Total Bilirubin 1.5 mg/dL (0.2-1.0) H 04/25/18 07:20 AST 25 U/L (15-37) 04/25/18 07:20 ALT 22 U/L (12-78) 04/25/18 07:20 Alkaline Phosphatase 54 U/L (45-117) D 04/25/18 07:20 Total Protein 5.9 g/dl (6.4-8.2) L 04/25/18 07:20 Albumin 3.4 g/dl (3.4-5.0) 04/25/18 07:20 Urine Color Yellow 04/25/18 07:40 Urine Appearance Slcloudy 04/25/18 07:40 Urine pH 9.0 (5.0-8.0) H 04/25/18 07:40 Ur Specific [place] 1.024 (1.001-1.035) 04/25/18 07:40 Urine Protein 1+ (NEGATIVE) H 04/25/18 07:40 Urine Glucose (UA) Negative (NEGATIVE) 04/25/18 07:40 Urine Ketones Negative (NEGATIVE) 04/25/18 07:40 Urine Blood Negative (NEGATIVE) 04/25/18 07:40 Urine Nitrite Negative (NEGATIVE) 04/25/18 07:40 Urine Bilirubin Negative (<2.0 mg/dL) 04/25/18 07:40 Urine Urobilinogen Negative mg/dL (0.2-1.0) 04/25/18 07:40 Ur Leukocyte Esterase Negative (NEGATIVE) 04/25/18 07:40 Urine WBC (Auto) 2 /hpf (3-5) 04/25/18 07:40 Urine RBC (Auto) None /hpf (0-3) 04/25/18 07:40 Ur Epithelial Cells Rare /HPF (FEW) 04/25/18 07:40 Urine Bacteria Rare /hpf (NONE SEEN) 04/25/18 07:40 Urine Mucus Few 04/25/18 07:40 RPR Titer Nonreactive (NONREACTIVE) 04/26/18 11:30 HIV 1&2 Antibody Screen Negative 04/25/18 07:20 HIV P24 Antigen Negative 04/25/18 07:20 Vital Signs Temperature 97.7 F 04/29/18 06:35 Pulse Rate 77 04/29/18 07:35 Respiratory Rate 18 04/29/18 07:35 Blood Pressure 86/57 04/29/18 07:35 O2 Sat by Pulse Oximetry (%) - Treatment Hospital Course: Detox Protocol Followed, Responded well, Discharged Condition Good, Rehab Referral Accepted Patient has Accepted a [facility] Referral to: [facility] - Medication Discharge Medications: Ambulatory Orders traZODone HCL [Desyrel -] 100 mg PO HS #30 tablet 04/28/18 - Diagnosis (1) Alcohol dependence with uncomplicated withdrawal Current Visit: Yes Status: Acute (2) Anxiety Current Visit: Yes Status: Acute (3) Depression Current Visit: Yes Status: Acute Qualifiers: Depression Type: unspecified Qualified Code(s): F32.9 - Major depressive disorder, single episode, unspecified (4) Nicotine dependence Current Visit: Yes Status: Chronic - AMA Did Patient Leave Against Medical Advice: No
[2018-04-29 09:25] VITALS: BP 97/58; PULSE 71; TEMP 98.3
[2018-04-29] MEDS: NICOTINE 14 MG/24 HOURS TOPICAL PATCH TD SCH (10:48)
[2018-04-29] MEDS: PRENATAL VITAMINS W/ FOLIC ACID TABLET (FP) PO SCH (10:48)
== END 2018-04-29 12:15 | disposition other institution (70) | DRG 775 ==
LOC: YASAS 19:06 → Y6N 21:26
PROVIDERS: ADMIT Surgery; ATTEND Surgery
PROC: HZ2ZZZZ Detoxification Services for Substance Abuse Treatment (ICD-10-PCS; principal; 2018-04-24)
DX: F10.230 Alcohol dependence with withdrawal, uncomplicated (principal); F10.220 Alcohol dependence with intoxication, uncomplicated; F17.210 Nicotine dependence, cigarettes, uncomplicated; F32.9 Major depressive disorder, single episode, unspecified; F41.9 Anxiety disorder, unspecified; G47.00 Insomnia, unspecified; Z91.5 Personal history of self-harm
CPT/HCPCS: 36415; 80053; 81003; 81015; 85027; 86593; 87389; 93005; 93010

== ENCOUNTER 2018-04-29 11:47 | Inpatient (IN) | payer OTHER ==
--- NOTE | 2018-04-29 14:40 | PN ---
[facility] Progress Note Note: Called by nursing staff on behalf of patient for sleep med. Medication reconciliation done. Trazadone 100 mg po HS ordered
[2018-04-29] MEDS ORDERED: guaiFENesin/D-METHORPHAN HB 10 ML UNIT-DOSE CUPS PO PRN (15:07)
[2018-04-29] MEDS ORDERED: P-EPHED 60MG/TRIPROLIDI 2.5MG TABLET PO PRN (15:07)
[2018-04-29] MEDS ORDERED: MAG HYDROX/AL HYDROX/SIMETH 30 ML UNIT-DOSE CUP PO PRN (15:07)
[2018-04-29] MEDS ORDERED: MENTHOL/PHENOL 1 EACH UD MM PRN (15:07)
[2018-04-29] MEDS ORDERED: LOPERAMIDE HCL 2 MG CAPSULE PO PRN (15:07)
--- NOTE | 2018-04-29 15:15 | HP ---
[facility] Rehab Assess/Revision - Admission History Admitted to Rehab from: [facility] Date of Admission to Rehab: 04/29/18 - Vital signs Vital Signs: Vital Signs Period Temp Pulse Resp BP Sys/Hurtado Pulse Ox Last 24 Hr 97.6 F 62 16 88/56 - Findings Detox History & Physical reviewed: Yes Concur with findings: Yes Comments/Additional Findings: for rehab as protocol Inpatient Rehab Admission - Initial Determination Are CD services needed?: Yes Free of communicable disease: Yes Not in need of hospitalization: Yes - Rehab Admission Criteria Previous failed treatment: Yes Poor recovery environment: Yes Comorbidities: Yes Lacks judgement: No Patient is meeting Inpatient Rehab admission criteria:: Yes
[2018-04-29] MEDS: hydrOXYzine PAMOATE 50 MG CAPSULE (FP) PO PRN (21:44)
[2018-04-29] MEDS: THIAMINE HCL 100 MG TABLET (FP) PO SCH (21:44)
[2018-04-29] MEDS ORDERED: traZODone HCL 100 MG TABLET (FP) PO SCH (22:00)
[2018-04-30] MEDS: MELATONIN 5 MG TABLETS PO PRN ×2 (00:38→21:54)
[2018-04-30] MEDS: PRENATAL VITAMINS W/ FOLIC ACID TABLET (FP) PO SCH (10:37)
[2018-04-30] MEDS: NICOTINE 21 MG/24 HOURS TOPICAL PATCH TD SCH (10:38)
[2018-04-30] MEDS: hydrOXYzine PAMOATE 50 MG CAPSULE (FP) PO PRN ×3 (10:38→21:54)
--- NOTE | 2018-04-30 11:04 | HP ---
Psychiatrist Admission - Data Date of interview: 04/30/18 Admission source: [address] [place] [address] Identifying data: This is the first admission to [address] [place] [address] for this 22 years old single childless female,homeless ,unemployed,supported by [facility]. Medical History: Unremarkable Psychiatric History: Patient was see psychiatrsit in 2017 to address anxiety, also OCD symptoms,depression,drug use.She was on Celexa,Adderal,Clonopin, Effexor.She was not compliant with treatment.Currently she is not on psychotropics,medicated herself with alcohol.Patient is willing to start SSRI.Properties of Luvox has been discussed with the patient,Luvox 25 mg po daily will be started today. Physical/Sexual Abuse/Trauma History: denies Vital Signs: Vital Signs - 24 hr 04/29/18 04/30/18 04/30/18 12:56 03:30 07:26 Temperature 97.6 F 97.7 F Pulse Rate 62 79 Respiratory 16 17 18 Rate Blood Pressure 88/56 84/58 Allergies/Adverse Reactions: Allergies Allergy/AdvReac Type Severity Reaction Status Date / Time No Known Allergies Allergy Verified 04/24/18 12:30 Date of last physical exam: 04/24/18 Concur with the findings of this exam: Yes - Substance Abuse/Tx History Hx Alcohol Use: Yes (drinking since 11 yo,progressed since 13 yo) Hx Substance Use: Yes (cocaine since 14 yo,on and off,heroin sniffing since 22 yo) Substance Use Type: Alcohol, Cocaine, Heroin, Marijuana Hx Substance Use Treatment: Yes (completed [facility] in 2016,2 years of abstinence) Mental Status Exam - Mental Status Exam Alert and Oriented to: Time, Place, Person Cognitive Function: Grossly Intact Patient Appearance: Well Groomed Mood: Euthymic Affect: Appropriate, Mood Congruent Patient Behavior: Cooperative Speech Pattern: Clear Voice Loudness: Normal Thought Process: Goal Oriented Thought Disorder: Not Present Hallucinations: Denies Suicidal Ideation: Denies Homicidal Ideation: Denies Insight/Judgement: Fair Sleep: Fair Appetite: Fair Muscle strength/Tone: Normal Gait/Station: Normal Psychiatric Findings - Problem List ([place] 1, 2,3) (1) Alcohol dependence Current Visit: Yes Status: Chronic (2) Nicotine dependence Current Visit: Yes Status: Chronic (3) Substance induced mood disorder Current Visit: Yes Status: Chronic - Initial Treatment Plan Initial Treatment Plan: D/C Trazodone 100 mg po hs(no response).Start Luvox 25 mg po daily.Will monitor progress.
[2018-04-30] MEDS: MAGNESIUM HYDROX 2400MG/30ML ORAL SUSPENSION 30 ML CUP PO PRN (18:00)
[2018-04-30] MEDS: THIAMINE HCL 100 MG TABLET (FP) PO SCH (21:53)
[2018-05-01] MEDS ORDERED: PT OWN MED DRAWER 7, Y5N ONE (08:53)
[2018-05-01] MEDS: NICOTINE 21 MG/24 HOURS TOPICAL PATCH TD SCH (10:44)
[2018-05-01] MEDS: PRENATAL VITAMINS W/ FOLIC ACID TABLET (FP) PO SCH (10:45)
[2018-05-01] MEDS: MAGNESIUM HYDROX 2400MG/30ML ORAL SUSPENSION 30 ML CUP PO PRN (10:46)
[2018-05-01] MEDS: THIAMINE HCL 100 MG TABLET (FP) PO SCH (21:54)
[2018-05-01] MEDS: hydrOXYzine PAMOATE 50 MG CAPSULE (FP) PO PRN (21:54)
[2018-05-01] MEDS: MELATONIN 5 MG TABLETS PO PRN (21:54)
[2018-05-01] MEDS: MAGNESIUM CITRATE 300 ML BOTTLE PO PRN (21:56)
[2018-05-02] MEDS ORDERED: PT OWN MED DRAWER 7, Y5N ONE (08:42)
[2018-05-02] MEDS: NICOTINE 21 MG/24 HOURS TOPICAL PATCH TD SCH (10:39)
[2018-05-02] MEDS: PRENATAL VITAMINS W/ FOLIC ACID TABLET (FP) PO SCH (10:39)
[2018-05-02] MEDS: hydrOXYzine PAMOATE 50 MG CAPSULE (FP) PO PRN (21:43)
[2018-05-02] MEDS: THIAMINE HCL 100 MG TABLET (FP) PO SCH (21:43)
[2018-05-02] MEDS: MELATONIN 5 MG TABLETS PO PRN (21:44)
[2018-05-03] MEDS: PRENATAL VITAMINS W/ FOLIC ACID TABLET (FP) PO SCH (10:39)
[2018-05-03] MEDS: hydrOXYzine PAMOATE 50 MG CAPSULE (FP) PO PRN ×2 (10:41→21:28)
[2018-05-03] MEDS: NICOTINE 21 MG/24 HOURS TOPICAL PATCH TD SCH (10:42)
[2018-05-03] MEDS: THIAMINE HCL 100 MG TABLET (FP) PO SCH (21:28)
[2018-05-03] MEDS: MELATONIN 5 MG TABLETS PO PRN (21:28)
[2018-05-04] MEDS: PRENATAL VITAMINS W/ FOLIC ACID TABLET (FP) PO SCH (10:15)
[2018-05-04] MEDS: NICOTINE 21 MG/24 HOURS TOPICAL PATCH TD SCH (10:15)
[2018-05-04] MEDS: hydrOXYzine PAMOATE 50 MG CAPSULE (FP) PO PRN ×2 (10:16→21:54)
[2018-05-04] MEDS: MELATONIN 5 MG TABLETS PO PRN (21:54)
[2018-05-04] MEDS: THIAMINE HCL 100 MG TABLET (FP) PO SCH (21:54)
[2018-05-05] MEDS: NICOTINE 21 MG/24 HOURS TOPICAL PATCH TD SCH (10:24)
[2018-05-05] MEDS: PRENATAL VITAMINS W/ FOLIC ACID TABLET (FP) PO SCH (10:24)
[2018-05-05] MEDS: hydrOXYzine PAMOATE 50 MG CAPSULE (FP) PO PRN ×2 (10:24→21:26)
[2018-05-05] MEDS: THIAMINE HCL 100 MG TABLET (FP) PO SCH (21:24)
[2018-05-05] MEDS: MAGNESIUM HYDROX 2400MG/30ML ORAL SUSPENSION 30 ML CUP PO PRN (21:26)
[2018-05-05] MEDS: MELATONIN 5 MG TABLETS PO PRN (21:26)
[2018-05-05] MEDS: NICOTINE POLACRILEX 2 MG GUM BUC PRN (21:37)
[2018-05-06] MEDS: PRENATAL VITAMINS W/ FOLIC ACID TABLET (FP) PO SCH (10:07)
[2018-05-06] MEDS: NICOTINE 21 MG/24 HOURS TOPICAL PATCH TD SCH (10:07)
[2018-05-06] MEDS: MAGNESIUM CITRATE 300 ML BOTTLE PO PRN (10:08)
[2018-05-06] MEDS: hydrOXYzine PAMOATE 50 MG CAPSULE (FP) PO PRN ×2 (13:36→21:37)
[2018-05-06] MEDS: MELATONIN 5 MG TABLETS PO PRN (21:37)
[2018-05-06] MEDS: THIAMINE HCL 100 MG TABLET (FP) PO SCH (21:37)
[2018-05-07] MEDS: NICOTINE 21 MG/24 HOURS TOPICAL PATCH TD SCH (10:18)
[2018-05-07] MEDS: PRENATAL VITAMINS W/ FOLIC ACID TABLET (FP) PO SCH (10:18)
[2018-05-07] MEDS: hydrOXYzine PAMOATE 50 MG CAPSULE (FP) PO PRN ×2 (17:46→21:51)
[2018-05-07] MEDS: NICOTINE POLACRILEX 2 MG GUM BUC PRN (17:46)
[2018-05-07] MEDS: THIAMINE HCL 100 MG TABLET (FP) PO SCH (21:51)
[2018-05-07] MEDS: MELATONIN 5 MG TABLETS PO PRN (21:51)
[2018-05-08] MEDS: PRENATAL VITAMINS W/ FOLIC ACID TABLET (FP) PO SCH (09:25)
[2018-05-08] MEDS: NICOTINE 21 MG/24 HOURS TOPICAL PATCH TD SCH (09:26)
[2018-05-08] MEDS: hydrOXYzine PAMOATE 50 MG CAPSULE (FP) PO PRN (21:35)
[2018-05-08] MEDS: MELATONIN 5 MG TABLETS PO PRN (21:35)
[2018-05-08] MEDS: THIAMINE HCL 100 MG TABLET (FP) PO SCH (21:35)
[2018-05-09] MEDS: PRENATAL VITAMINS W/ FOLIC ACID TABLET (FP) PO SCH (10:01)
[2018-05-09] MEDS: MAGNESIUM HYDROX 2400MG/30ML ORAL SUSPENSION 30 ML CUP PO PRN (10:01)
[2018-05-09] MEDS: hydrOXYzine PAMOATE 50 MG CAPSULE (FP) PO PRN ×2 (10:01→21:47)
[2018-05-09] MEDS: NICOTINE 21 MG/24 HOURS TOPICAL PATCH TD SCH (10:02)
[2018-05-09] MEDS: MELATONIN 5 MG TABLETS PO PRN (21:48)
[2018-05-09] MEDS: THIAMINE HCL 100 MG TABLET (FP) PO SCH (21:48)
[2018-05-10] MEDS: PRENATAL VITAMINS W/ FOLIC ACID TABLET (FP) PO SCH (09:57)
[2018-05-10] MEDS: NICOTINE 21 MG/24 HOURS TOPICAL PATCH TD SCH (09:58)
[2018-05-10] MEDS ORDERED: MAGNESIUM CITRATE 300 ML BOTTLE PO ONE (13:30)
[2018-05-10] MEDS: ACETAMINOPHEN 325 MG TABLET (FP) PO PRN (14:49)
[2018-05-10] MEDS ORDERED: PT OWN MED DRAWER 7, Y5N ONE (21:02)
[2018-05-10] MEDS: hydrOXYzine PAMOATE 50 MG CAPSULE (FP) PO PRN (21:22)
[2018-05-10] MEDS: THIAMINE HCL 100 MG TABLET (FP) PO SCH (21:22)
[2018-05-10] MEDS: MELATONIN 5 MG TABLETS PO PRN (21:22)
[2018-05-11] MEDS: PRENATAL VITAMINS W/ FOLIC ACID TABLET (FP) PO SCH (10:14)
[2018-05-11] MEDS: NICOTINE 21 MG/24 HOURS TOPICAL PATCH TD SCH (10:16)
[2018-05-11] MEDS: MELATONIN 5 MG TABLETS PO PRN (21:34)
[2018-05-11] MEDS: THIAMINE HCL 100 MG TABLET (FP) PO SCH (21:34)
[2018-05-11] MEDS: hydrOXYzine PAMOATE 50 MG CAPSULE (FP) PO PRN (21:34)
[2018-05-12] MEDS ORDERED: PT OWN MED DRAWER 7, Y5N ONE (08:27)
[2018-05-12] MEDS: PRENATAL VITAMINS W/ FOLIC ACID TABLET (FP) PO SCH (09:55)
[2018-05-12] MEDS: NICOTINE 21 MG/24 HOURS TOPICAL PATCH TD SCH (09:55)
[2018-05-12] MEDS: hydrOXYzine PAMOATE 50 MG CAPSULE (FP) PO PRN (09:56)
--- NOTE | 2018-05-12 14:03 | PN ---
Psychiatric Progress Note Vital Signs: Vital Signs Period Temp Pulse Resp BP Sys/Hurtado Pulse Ox Last 24 Hr 97.4 F 50 16-18 97/63 Date of Session: 05/12/18 Chief Complaint:: Jovany not sleeping,still depressed. HPI: Alcohol dependence comorbid with Alcohol induced mood disorder. Current Medications: Active Medications Generic Name Dose Route Start Last Admin Trade Name Freq PRN Reason Stop Dose Admin Acetaminophen 650 mg 04/29/18 15:07 05/10/18 14:49 Tylenol - PO 650 mg Q4H PRN Administration FEVER Al Hydroxide/Mg Hydroxide 30 ml 04/29/18 15:07 Mylanta Oral Suspension - PO Q6H PRN DYSPEPSIA Eucalyptus/Menthol/Phenol/Sorbitol 1 each 04/29/18 15:07 Cepastat Lozenge - MM Q4H PRN SORE THROAT Fluvoxamine Maleate 25 mg 05/04/18 16:29 05/12/18 09:55 Luvox - PO 25 mg DAILY LACY Administration Guaifenesin 10 ml 04/29/18 15:07 Robitussin Dm - PO Q6H PRN COUGH Hydroxyzine Pamoate 50 mg 04/29/18 15:07 05/12/18 09:56 Vistaril - PO 50 mg Q4H PRN Administration AGITATION Ibuprofen 400 mg 04/29/18 15:07 Motrin - PO Q6H PRN Pain Level 4-6 Loperamide HCl 4 mg 04/29/18 15:07 Imodium - PO Q6H PRN DIARRHEA Magnesium Hydroxide 30 ml 04/29/18 15:07 05/09/18 10:01 Milk Of Magnesia - PO 30 ml DAILY PRN Administration CONSTIPATION Melatonin 5 mg 04/29/18 22:00 05/11/18 21:34 Melatonin PO 5 mg HS PRN Administration INSOMNIA Nicotine 21 mg 04/30/18 10:00 05/12/18 09:55 Nicoderm Patch - TD Not Given DAILY LACY Nicotine Polacrilex 2 mg 04/29/18 15:14 05/07/18 17:46 Nicorette Gum - BUC 2 mg Q2H PRN Administration NICOTINE REPLACEMENT RX Multivit/Folic Acid/Iron 1 tab 04/30/18 10:00 05/12/18 09:55 Vitamins (Sjr) - PO 1 tab DAILY LACY Administration Pseudoephedrine/Triprolidine 1 combo 04/29/18 15:07 Actifed - PO TID PRN NASAL CONGESTION Thiamine HCl 100 mg 04/29/18 22:00 05/11/18 21:34 Vitamin B1 - PO 100 mg HS LACY Administration Current Side Effect: No Lab tests ordered: No Lab tests reviewed: Yes Provider note:: Chart was revuewed,patient was evaluated regarding her ongoing depressed mood,insomnia,OCD issues.Properties of Luvox has been discussed with the patient. Luvox 25 mg po daily will be adjusted to 50 mg po daily,add Benadryl 50 mg po hs. supportive therapy provided focusing on relaxation techniques. Mental Status Exam - Mental Status Exam Alert and Oriented to: Time, Place, Person Cognitive Function: Grossly Intact Patient Appearance: Well Groomed Mood: Sad, Anxious Affect: Labile Patient Behavior: Cooperative Speech Pattern: Clear Voice Loudness: Normal Thought Process: Goal Oriented Thought Disorder: Not Present Hallucinations: Denies Suicidal Ideation: Denies Homicidal Ideation: Denies Insight/Judgement: Fair Sleep: Difficulty falling asleep Appetite: Good Muscle strength/Tone: Normal Gait/Station: Normal Psychiatric Treatment Plan - Problem List (1) Alcohol dependence Current Visit: Yes (2) Nicotine dependence Current Visit: Yes (3) Substance induced mood disorder Current Visit: Yes
[2018-05-12] MEDS: THIAMINE HCL 100 MG TABLET (FP) PO SCH (21:37)
[2018-05-12] MEDS: MAGNESIUM HYDROX 2400MG/30ML ORAL SUSPENSION 30 ML CUP PO PRN (21:37)
[2018-05-12] MEDS: MELATONIN 5 MG TABLETS PO PRN (21:37)
[2018-05-12] MEDS: diphenhydrAMINE HCL 50 MG CAPSULE PO SCH (21:37)
[2018-05-13] MEDS: NICOTINE 21 MG/24 HOURS TOPICAL PATCH TD SCH (10:18)
[2018-05-13] MEDS: PRENATAL VITAMINS W/ FOLIC ACID TABLET (FP) PO SCH (10:18)
[2018-05-13] MEDS: diphenhydrAMINE HCL 50 MG CAPSULE PO SCH (21:28)
[2018-05-13] MEDS: THIAMINE HCL 100 MG TABLET (FP) PO SCH (21:28)
[2018-05-13] MEDS: MELATONIN 5 MG TABLETS PO PRN (21:28)
[2018-05-14] MEDS ORDERED: PT OWN MED DRAWER 7, Y5N ONE (08:59)
[2018-05-14] MEDS: PRENATAL VITAMINS W/ FOLIC ACID TABLET (FP) PO SCH (10:46)
[2018-05-14] MEDS: NICOTINE 21 MG/24 HOURS TOPICAL PATCH TD SCH (10:47)
[2018-05-14] MEDS: hydrOXYzine PAMOATE 50 MG CAPSULE (FP) PO PRN (14:39)
[2018-05-14] MEDS: THIAMINE HCL 100 MG TABLET (FP) PO SCH (21:29)
[2018-05-14] MEDS: diphenhydrAMINE HCL 50 MG CAPSULE PO SCH (21:29)
[2018-05-14] MEDS: MELATONIN 5 MG TABLETS PO PRN (21:29)
[2018-05-15] MEDS ORDERED: PT OWN MED DRAWER 7, Y5N ONE (08:56)
[2018-05-15] MEDS: PRENATAL VITAMINS W/ FOLIC ACID TABLET (FP) PO SCH (10:31)
[2018-05-15] MEDS: NICOTINE 21 MG/24 HOURS TOPICAL PATCH TD SCH (10:31)
[2018-05-15] MEDS: diphenhydrAMINE HCL 50 MG CAPSULE PO SCH (21:18)
[2018-05-15] MEDS: THIAMINE HCL 100 MG TABLET (FP) PO SCH (21:18)
[2018-05-15] MEDS: MELATONIN 5 MG TABLETS PO PRN (21:19)
[2018-05-16] MEDS ORDERED: PT OWN MED DRAWER 7, Y5N ONE ×2 (08:53→19:52)
[2018-05-16] MEDS: PRENATAL VITAMINS W/ FOLIC ACID TABLET (FP) PO SCH (10:08)
[2018-05-16] MEDS: hydrOXYzine PAMOATE 50 MG CAPSULE (FP) PO PRN (10:10)
[2018-05-16] MEDS: MAGNESIUM HYDROX 2400MG/30ML ORAL SUSPENSION 30 ML CUP PO PRN (10:10)
[2018-05-16] MEDS: NICOTINE 21 MG/24 HOURS TOPICAL PATCH TD SCH (10:12)
[2018-05-16] MEDS: MELATONIN 5 MG TABLETS PO PRN (21:05)
[2018-05-16] MEDS: diphenhydrAMINE HCL 50 MG CAPSULE PO SCH (21:05)
[2018-05-16] MEDS: THIAMINE HCL 100 MG TABLET (FP) PO SCH (21:05)
[2018-05-17] MEDS ORDERED: PT OWN MED DRAWER 7, Y5N ONE (08:29)
[2018-05-17] MEDS: PRENATAL VITAMINS W/ FOLIC ACID TABLET (FP) PO SCH (10:14)
[2018-05-17] MEDS: NICOTINE 21 MG/24 HOURS TOPICAL PATCH TD SCH (10:14)
[2018-05-17] MEDS: IBUPROFEN 400 MG TABLET (FP) PO PRN (11:22)
[2018-05-17] MEDS: THIAMINE HCL 100 MG TABLET (FP) PO SCH (21:51)
[2018-05-17] MEDS: diphenhydrAMINE HCL 50 MG CAPSULE PO SCH (21:51)
[2018-05-17] MEDS: MELATONIN 5 MG TABLETS PO PRN (21:51)
[2018-05-18] MEDS ORDERED: PT OWN MED DRAWER 7, Y5N ONE (08:47)
[2018-05-18] MEDS: PRENATAL VITAMINS W/ FOLIC ACID TABLET (FP) PO SCH (10:55)
[2018-05-18] MEDS: NICOTINE 21 MG/24 HOURS TOPICAL PATCH TD SCH (10:56)
[2018-05-18] MEDS: hydrOXYzine PAMOATE 50 MG CAPSULE (FP) PO PRN (14:27)
[2018-05-18] MEDS: MAGNESIUM HYDROX 2400MG/30ML ORAL SUSPENSION 30 ML CUP PO PRN (14:27)
[2018-05-18] MEDS: THIAMINE HCL 100 MG TABLET (FP) PO SCH (21:57)
[2018-05-18] MEDS: diphenhydrAMINE HCL 50 MG CAPSULE PO SCH (21:57)
[2018-05-18] MEDS: MELATONIN 5 MG TABLETS PO PRN (21:57)
[2018-05-19] MEDS: IBUPROFEN 400 MG TABLET (FP) PO PRN (08:38)
[2018-05-19] MEDS: NICOTINE 21 MG/24 HOURS TOPICAL PATCH TD SCH (09:20)
[2018-05-19] MEDS: hydrOXYzine PAMOATE 50 MG CAPSULE (FP) PO PRN (09:20)
[2018-05-19] MEDS: PRENATAL VITAMINS W/ FOLIC ACID TABLET (FP) PO SCH (09:20)
[2018-05-19] MEDS: ACETAMINOPHEN 325 MG TABLET (FP) PO PRN (11:02)
[2018-05-19] MEDS ORDERED: CYCLOBENZAPRINE HCL 5 MG TABLET PO PRN (14:03)
--- NOTE | 2018-05-19 14:04 | PN ---
S Progress Note Note: Vital Signs Temperature 98.1 F 05/19/18 07:10 Pulse Rate 81 05/19/18 07:10 Respiratory Rate 18 05/19/18 07:10 Blood Pressure 88/55 05/19/18 07:10 O2 Sat by Pulse Oximetry (%) c/o back pain lidocaine patch flexeril prn ambulate increase fluids continue to monitor
[2018-05-19] MEDS: LIDOCAINE 5% TOPICAL PATCH TP SCH (14:35)
[2018-05-19] MEDS: THIAMINE HCL 100 MG TABLET (FP) PO SCH (21:26)
[2018-05-19] MEDS: MELATONIN 5 MG TABLETS PO PRN (21:26)
[2018-05-19] MEDS: diphenhydrAMINE HCL 50 MG CAPSULE PO SCH (21:26)
[2018-05-19] MEDS: LIDOCAINE PATCH REMOVAL MC SCH (23:53)
[2018-05-20] MEDS: PRENATAL VITAMINS W/ FOLIC ACID TABLET (FP) PO SCH (09:55)
[2018-05-20] MEDS: LIDOCAINE 5% TOPICAL PATCH TP SCH (09:55)
[2018-05-20] MEDS: NICOTINE 21 MG/24 HOURS TOPICAL PATCH TD SCH (09:55)
[2018-05-20] MEDS ORDERED: MAGNESIUM CITRATE 300 ML BOTTLE PO ONE (13:56)
[2018-05-20] MEDS ORDERED: PT OWN MED DRAWER 7, Y5N ONE (14:58)
[2018-05-20] MEDS: diphenhydrAMINE HCL 50 MG CAPSULE PO SCH (21:54)
[2018-05-20] MEDS: MELATONIN 5 MG TABLETS PO PRN (21:54)
[2018-05-20] MEDS: THIAMINE HCL 100 MG TABLET (FP) PO SCH (21:54)
[2018-05-20] MEDS: LIDOCAINE PATCH REMOVAL MC SCH (23:28)
[2018-05-21 07:01] VITALS: BP 90/57; PULSE 60; TEMP 97.4
[2018-05-21] MEDS ORDERED: PT OWN MED DRAWER 7, Y5N ONE (08:31)
--- NOTE | 2018-05-21 08:34 | PN ---
Psychiatric Progress Note Vital Signs: Vital Signs Period Temp Pulse Resp BP Sys/Hurtado Pulse Ox Last 24 Hr 97.4 F 60 16-18 90/57 Date of Session: 05/21/18 Chief Complaint:: Discharge visit HPI: Patient addressed Alcohol dependence comorbid with Substance induced mood disorder. ROS: Unremarkable Current Medications: Active Medications Generic Name Dose Route Start Last Admin Trade Name Freq PRN Reason Stop Dose Admin Acetaminophen 650 mg 04/29/18 15:07 05/19/18 11:02 Tylenol - PO 650 mg Q4H PRN Administration FEVER Al Hydroxide/Mg Hydroxide 30 ml 04/29/18 15:07 Mylanta Oral Suspension - PO Q6H PRN DYSPEPSIA Cyclobenzaprine HCl 5 mg 05/19/18 14:03 Cyclobenzaprine Hcl PO TID PRN BACK PAIN Diphenhydramine HCl 50 mg 05/12/18 22:00 05/20/18 21:54 Benadryl - PO 50 mg HS LACY Administration Eucalyptus/Menthol/Phenol/Sorbitol 1 each 04/29/18 15:07 Cepastat Lozenge - MM Q4H PRN SORE THROAT Fluvoxamine Maleate 50 mg 05/13/18 10:00 05/20/18 09:55 Luvox - PO 50 mg DAILY LACY Administration Guaifenesin 10 ml 04/29/18 15:07 Robitussin Dm - PO Q6H PRN COUGH Hydroxyzine Pamoate 50 mg 04/29/18 15:07 05/19/18 09:20 Vistaril - PO 50 mg Q4H PRN Administration AGITATION Ibuprofen 400 mg 04/29/18 15:07 05/19/18 08:38 Motrin - PO 400 mg Q6H PRN Administration Pain Level 4-6 Lidocaine 1 patch 05/19/18 14:30 05/20/18 09:55 Lidoderm Patch - TP 1 patch DAILY LACY Administration Loperamide HCl 4 mg 04/29/18 15:07 Imodium - PO Q6H PRN DIARRHEA Magnesium Hydroxide 30 ml 04/29/18 15:07 05/18/18 14:27 Milk Of Magnesia - PO 30 ml DAILY PRN Administration CONSTIPATION Melatonin 5 mg 04/29/18 22:00 05/20/18 21:54 Melatonin PO 5 mg HS PRN Administration INSOMNIA Miscellaneous 1 each 05/19/18 22:00 05/20/18 23:28 Lidoderm Patch Removal MC 1 each DAILY@2200 LACY Administration Nicotine 21 mg 04/30/18 10:00 05/20/18 09:55 Nicoderm Patch - TD Not Given DAILY LACY Nicotine Polacrilex 2 mg 04/29/18 15:14 05/07/18 17:46 Nicorette Gum - BUC 2 mg Q2H PRN Administration NICOTINE REPLACEMENT RX Multivit/Folic Acid/Iron 1 tab 04/30/18 10:00 05/20/18 09:55 Vitamins (Sjr) - PO 1 tab DAILY LACY Administration Pseudoephedrine/Triprolidine 1 combo 04/29/18 15:07 Actifed - PO TID PRN NASAL CONGESTION Thiamine HCl 100 mg 04/29/18 22:00 05/20/18 21:54 Vitamin B1 - PO 100 mg HS LACY Administration Current Side Effect: No Lab tests ordered: No Lab tests reviewed: Yes Provider note:: patient completed this program today.She has met her treatment goals and will continue to address her issues on outpatient basis at [facility] for 6 months. Patient will continue current medications:Luvox 50 mg po daily,Benadryl 50 mg po hs.Scripts for 30 days provided. Patient identifies areas of difficulties,behaviors which contribute ro relapse. Support sytem,coping skills utilizations has been discussed with the patient as well as other resourses to maintain recovery. Total face to face time:: 30 Mental Status Exam - Mental Status Exam Alert and Oriented to: Time, Place, Person Cognitive Function: Grossly Intact Patient Appearance: Well Groomed Mood: Hopeful, Euthymic Affect: Appropriate, Mood Congruent, Euthymic Patient Behavior: Cooperative Speech Pattern: Clear Voice Loudness: Normal Thought Process: Goal Oriented Thought Disorder: Not Present Hallucinations: Denies Suicidal Ideation: Denies Homicidal Ideation: Denies Insight/Judgement: Fair Sleep: Fair Appetite: Good Muscle strength/Tone: Normal Gait/Station: Normal Psychiatric Treatment Plan - Problem List (1) Alcohol dependence Current Visit: Yes (2) Nicotine dependence Current Visit: Yes (3) Substance induced mood disorder Current Visit: Yes
[2018-05-21] MEDS: NICOTINE 21 MG/24 HOURS TOPICAL PATCH TD SCH (10:36)
[2018-05-21] MEDS: PRENATAL VITAMINS W/ FOLIC ACID TABLET (FP) PO SCH (10:36)
[2018-05-21] MEDS: LIDOCAINE 5% TOPICAL PATCH TP SCH (10:37)
== END 2018-05-21 17:18 | disposition home or self-care (01) | DRG 772 ==
LOC: YASAS 11:47 → Y3E 11:48
PROVIDERS: ADMIT Psychiatry & Neurology Psychiatry; ATTEND Psychiatry & Neurology Psychiatry
PROC: HZ42ZZZ Group Counseling for Substance Abuse Treatment, Cognitive-Behavioral (ICD-10-PCS; principal; 2018-04-29)
DX: F10.20 Alcohol dependence, uncomplicated (principal); F17.210 Nicotine dependence, cigarettes, uncomplicated; F19.24 Other psychoactive substance dependence with psychoactive substance-induced mood disorder